=== PATIENT | female | born 1945 | race Caucasian/White ===

== ENCOUNTER 2022-10-08 21:43 | Emergency (ER) | payer MEDICARE, BC, SELFPAY ==
[2022-10-08 21:57] VITALS: BP 166/71; PULSE 65; RESP 18; TEMP 36.6; O2SAT 98
[2022-10-08] MEDS: TETRACAINE 0.5% OPHTH 2 DROP EYE-BOTH (23:22)
--- OUTSIDE RECORDS SUMMARY | 2022-10-08 23:29 | XMS_ITS | Continuity of Care Document ---
Author Name [facility] Care Team Providers Care School Age Teacher Name Role Phone [facility] Unavailable Unavailable Diagnostic Reports Report Value Date Source THYROID FINE NEEDLE ASPIRATION/BIOPSY US - THYROID FINE NEEDLE ASPIRATION/BIOPSY Patient Name: Kirt Escobedo Patient : 1945 DOS: Sep 09, 2019 Patient Ref. Physician: Kaitlin Randhawa SHUCKER Exam # [id number] - Sep 09 2019 - US - THYROID FINE NEEDLE ASPIRATION/BIOPSY (Right) Exam Performed at [facility] ADDENDUM: Pathology results have now returned for the above biopsy. DIAGNOSIS: Right thyroid, middle, 4.9 cm: Cytopathology: Atypia of undetermined significance. 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 on Sep 28, 2019 09/09/2019 Formerly [facility]
--- OUTSIDE RECORDS SUMMARY | 2022-10-08 23:29 | XMS_ITS | Continuity of Care Document ---
Author Name Unknown Organization [facility] Address [address] [place] [address] Phone Care Team Providers Care Operation Specialist Name Role Phone Sydnie Medina OD Unavailable Unavailable Allergies, Adverse Reactions, Alerts Substance Reaction Status Criticality latex Active No Information amlodipine Active No Information lisinopril Active No Information DIPHENHYDRAMINE HCL Active No Infor mation codeine Active No Information Sulfa (Sulfonamide Antibiotics) Active No Information Medications Medication Instructions Dosage Effective Dates (start - stop) Status Comments Alrex 0.2 % eye drops,suspension instill 1 drop by ophthalmic route TID OU for 2 weeks - Active levothyroxine 75 mcg capsule take 1 capsule by oral route every day 75 MCG - Active losartan 100 mg tablet take 1 tablet by oral route every day 100 MG - Active spironolactone 25 mg tablet take 1 tablet by oral route every day 25 MG - Active pantoprazole 40 mg tablet,delayed release take 1 tablet by oral route every day 40 MG - Active atorvastatin 40 mg tablet take 1 tablet by oral route every day 40 MG - Active metoprolol succinate ER 50 mg tablet,extended release 24 hr take 1 tablet by oral route every day 50 MG - Active Eliquis 5 mg tablet take 2 tablet by oral route 2 times every day 10 MG - Active carvedilol 6.25 mg tablet take 1 tablet by oral route 2 times every day with food 6.25 MG - Active PreserVision AREDS-2 250 mg-90 mg-40 mg-1 mg capsule - Active Alrex 0.2 % eye drops,suspension instill 1 drop by ophthalmic route TID OU for 2 weeks - No Longer Active Eysuvis 0.25 % eye drops,suspension instill 1 - 2 drop by ophthalmic route 3 times every day into both eyes for 1-2 weeks - No Longer Active Procedures Procedure Date Scan Computerized; Retina Epilation Of Lashes New Patient E/M Moderate MDM Advance Directives Directive Yes / No Effective Date File Name No Information Encounters Encounter Description Practice Location Reason(s) For Visit Diagnoses Date Provider Providers Copied on Encounter Formerly Named [facility], [address] , [place], [place], [id number], [place] tel:[phone]eline Berg No Information 3 Carol Otoole. [address] [place], [address], [place]. tel:[phone] New Patient E/M Moderate MDM Formerly Named [facility], [address] , [place], [place], [id number], [place] tel:[phone] Jacqueline Berg irritation (chief complaint) Trichiasis without entropion right upper eyelidKeratoconj unct sicca, not specified as Sjogren's, bilateralOther chronic allergic conjunctivitisOt her secondary cataract, bilateralBilater al nonexudative age-related macular degeneration, intermediate dry stagePuckering of macula, left eye 3 Carol Otoole. [address] [place], [address], [place]. [phone] Referring Provider: Sydnie Medina, [address] [place], [address]. tel:[phone] Family History Family Member Type Diagnosis Age At Onset No Information Payers Payer name Insurance type Covered democrat ID Authoriza tion(s) [facility] [id number] Social History Type Description Quantity Date Captured Comments Sex Female Smoking Status No Information Chief Complaint And Reason For Visit No Information Reason For Referral Reason For Referral No Information Plan Of Treatment Date Type Action Status No Information History Of Present Illness Encounter Date Complaint History Of Prese nt Illness irritation The 76 year old female presents for evaluation of irritation in the right eye > left. Patient describes having FBS, itching and swelling OD>OS. Started 7 days ago, however is worsening. Patient has been using Alaway drops and Systane Ultra, however is no longer helping. Patient also describes having a film over vision OD, has been off/on the last couple days.Patient reports hx of epiretinal membrane OS and dry AMD OU. 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 She is declining dilation today because she has yearly checks in the fall. Functional Status Date Functional Assessmen t No Information Medications Administered Medication Instructions Dosage Effective Dates (start - stop) Status Comments Alrex 0.2 % eye drops,suspension instill 1 drop by ophthalmic route TID OU for 2 weeks - No Longer Active Eysuvis 0.25 % eye drops,suspension instill 1 - 2 drop by ophthalmic route 3 times every day into both eyes for 1-2 weeks - No Longer Active Instructions Date Instruction Additional Infor markion Impression/Plan - Di scussed findings and educated patient on condition. Epilated 2 RUL lashes, patient tolerated procedure well. Contact clinic if symptoms return. 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 OCT ordered today: loss of foveal contour, no cystic spaces. Surgical treatment not indicated at this time. Cont care with outside ECP. Contact clinic sooner if any sudden worsening of vision. Related to Puckering of macula, left eye Impression/Plan - Di scussed findings and educated patient on condition. Inadequate relief with OTC artificial tears and Alaway, Pataday. Rx Alrex TID OU x 1-2 weeks. Contact clinic if symptoms persist/worsen. Related to Keratoconjunct sicca, not specified as Sjogren's, bilateral Impression/Plan - Se e #1. No current relief with Alaway or Pataday. Rx Alrex TID OU x 1-2 weeks. Also rec'd trying OTC Lastacaft. Related to Other chronic allergic conjunctivitis Impression/Plan - Di scussed findings. Patient states her regular ECP has mentioned possibly doing YAG next year. Keep appt w/ ECP in [place]. Related to Other secondary cataract, bilateral Impression/Plan - Di scussed findings. Patient refused DFE today as she has doctor back home in [place]. OCT ordered: no SRF, dry AMD OU. Continue to monitor with regular ECP. Monitor vision at home with Amsler grid. Patient directed to RTC sooner if any sudden changes to vision. Rx AREDS 2 BID, UV protection and healthy diet rich in antioxidants. Related to Bilateral nonexudative age-related macular degeneration, intermediate dry stage Follow up - PRN. Assessments Type Assessment Date No Information Patient Care Teams Name Effective Dates (start - stop) Status Members No Information
--- NOTE | 2022-10-09 03:24 | ED.EYEPROB ---
HPI - Eye Problem General Chief complaint: Eye Problems Stated complaint: Eye issue Time Seen by Provider: 10/08/22 22:36 History of Present Illness HPI Narrative: 76-year-old woman presenting to the emergency department with extremely itchy in somewhat burning eyes bilaterally and she just wants to the scratch out of their sockets. She does endorse a history of environmental allergies. She does use nasal steroid spray. Has been through a variety of what sounds like antihistamine eyedrops but became ineffective over time. Incidentally is due for YAG procedure in the morning. Currently using Lastacaft eyedrops. Does have a history of a contact dermatitis/conjunctivitis from makeup but no longer wears makeup. This prior episode of conjunctivitis she describes with copious purulent type drainage. Tonight she was treating with successive drops of Systane. Other than as mentioned above no exposures noted. No blisters. Denies for likelihood of foreign body in her. Related Data Previous Rx's Medication Instructions Recorded olopatadine 0.2 % eye drops 1 drp ophthalmic (eye) DAILY #2.5 10/08/22 mL Review of Systems Status of ROS: Reports: 6 or more systems reviewed and unremarkable except as noted in History and below PFSH PFS Social History Smoking Status: Never smoker Do you use any of these nicotine containing products: None Second hand tobacco smoke exposure: No How often do you have a drink containing alcohol: never AUDIT-C Alcohol total score: 0 Non-prescribed substance use: denies use service: No Exam Narrative: Exam Narrative: Pleasant. Of good energy. Appears little uncomfortable. Sounds subtly congested in the nasopharynx and I would say is consistent with a conjunctivitis I see here. Right a little bit more so than the left eye. Extraocular movements are full appear to be nonpainful. Pupils are brisk and equal. There is clear lacrimation. No surrounding redness tension or heat though infraorbital puffiness to the skin. Reflections consistent with lens reimplantation especially in her right eye. Seems dulled in the left. Const: Vital Signs, click to edit/add: Vital Signs - 24 hr 10/08/22 21:57 Temperature 97.9 F Pulse Rate [Right Pulse Oximeter] 65 Respiratory Rate 18 Blood Pressure [Ri ght Upper Arm] 166/71 H Pulse Oximetry 98 Oxygen Delivery Me thod Room Air Documenting provider has reviewed patient's vital signs: yes Course Vital Signs Vital signs: Initial Vital Signs Temperature 97.9 F 10/08/22 21:57 Temperature Source Temporal Artery Scan 10/08/22 21:57 Pulse Rate 65 10/08/22 21:57 Pulse Rhythm Regular 10/08/22 21:57 Respiratory Rate 18 10/08/22 21:57 Blood Pressure 166/71 H 10/08/22 21:57 Blood Pressure Mean 102 10/08/22 21:57 Blood Pressure Position Sitting 10/08/22 21:57 Pulse Oximetry 98 10/08/22 21:57 Oxygen Delivery Method Room Air 10/08/22 21:57 Vital Signs Temperature 97.9 F 10/08/22 21:57 Pulse Rate 65 10/08/22 21:57 Respiratory Rate 18 10/08/22 21:57 Blood Pressure 166/71 H 10/08/22 21:57 Pulse Oximetry 98 10/08/22 21:57 Oxygen Delivery Method Room Air 10/08/22 21:57 Temperature 97.9 F 10/08/22 21:57 Pulse Rate 65 10/08/22 21:57 Respiratory Rate 18 10/08/22 21:57 Blood Pressure 166/71 H 10/08/22 21:57 Pulse Oximetry 98 10/08/22 21:57 Oxygen Delivery Method Room Air 10/08/22 21:57 MDM - Eye Problem MDM Narrative Medical decision making narrative: I felt would benefit from some temporary relief at least. Ordered some tetracaine drops I placed them. She did have good relief of her discomfort. I do not see signs of bacterial conjunctivitis or any periorbital cellulitis. She does have close follow-up in the morning with ophthalmology and until then benefit mostly I think from symptom relief. Options seem a little limited. I would not want to put her on steroid drops at this point in anticipation of this procedure if she can still go through with that. Think oral steroids would be less effective and overkill. I think soothing measures like cold cloths and eye ointment and possibly changing up antihistamine eyedrops; will send in prescription for olopatadine noting that that is also available [id number] I believe now. She could certainly put in another drop of her current eye drops tonight. See patient discharge plan. Discharge Plan Discharge Clinical Impression: Conjunctivitis Patient Disposition: Home, Self-Care Condition: Improved Additional Instructions: Might try some cold moist packs like ice cubes inside wash cloths. For soothing otherwise some generic eye ointment. This can be picked up without prescription. Use as needed. You might try dosing your Lastacaft again this evening? Or changing to Patanol (olopatadine) which last I heard can now be purchased [id number] as well. I would follow-up just in case for your YAG tomorrow and discuss further at that time. Concerning signs/symptoms would be increased redness tension heat around the eye or pain with eye movement or a large amount of purulent eye drainage. Prescriptions: New olopatadine 0.2 % drops 1 drp ophthalmic (eye) DAILY Qty: 2.5 1RF Follow Up/Referrals: Provider,Not a Local [Primary Care Provider] - Stand Alone Forms: [employer] Info Instructions
== END 2022-10-08 23:40 | disposition home or self-care (01) ==
PROVIDERS: Emergency Provider Family Medicine
DX: H10.89 Other conjunctivitis (principal)
CPT/HCPCS: 99283; 99284

== ENCOUNTER 2022-10-09 12:26 | Outpatient (CLI) | payer MEDICARE, BC, SELFPAY ==
--- OUTSIDE RECORDS SUMMARY | 2022-10-09 12:30 | XMS_ITS | Continuity of Care Document ---
Author Name [facility]rain[facility] Care Team Providers Care Manager Special Events Name Role Phone [facility] Unavailable Unavailable Diagnostic Reports Report Value Date Source THYROID FINE NEEDLE ASPIRATION/BIOPSY US - THYROID FINE NEEDLE ASPIRATION/BIOPSY Patient Name: Kirt Escobedo Patient : 1945 DOS: Sep 09, 2019 Patient Ref. Physician: Kaitlin Randhawa C[employer] Exam # [id number] - Sep 09 2019 - US - THYROID FINE NEEDLE ASPIRATION/BIOPSY (Right) Exam Performed at [facility] ADDENDUM: Pathology results have now returned for the above biopsy. DIAGNOSIS: Right thyroid, middle, 4.9 cm: Cytopathology: Atypia of undetermined significance. 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 on Sep 28, 2019 09/09/2019 [facility]
[2022-10-09 12:47] VITALS: BP 127/71; PULSE 58; RESP 16; TEMP 36.6; O2SAT 97
[2022-10-09] MEDS: BRIMONIDINE TARTRATE 0.2% OPHTH 1 DROP EYE-BOTH ×2 (12:50→13:41)
[2022-10-09] MEDS: TETRACAINE 0.5% OPHTH 1 DROP EYE-BOTH ×3 (12:50→13:28)
--- NOTE | 2022-10-09 13:48 | P.OPTPRC_ITS ---
Procedure Note Date of procedure: 10/09/22 Will [facility] bill your pro fee for this procedure?: Yes Procedure Description: SURGEON: Zahraa Mckee MD PREOPERATIVE DIAGNOSIS: Posterior capsular opacity, right and left eye POSTOPERATIVE DIAGNOSIS: Posterior capsular opacity, right and left eye PROCEDURE: YAG laser capsulotomy, both eyes ANESTHESIA: Topical. ESTIMATED BLOOD LOSS: None PATHOLOGY SPECIMEN: None COMPLICATIONS: None INDICATIONS: See consult note for details. The risks, benefits and alternatives of the procedure were explained to the patient, who elected to proceed and signed informed consent to do so. PROCEDURE: The patient was brought to the pre-holding area where the right and left eyes were identified as the operative eyes. I placed my initials above the eyes. The following was given in both eyes: The patient received 2 sets of 1 drop of 0.5% tetracaine and 1 drop of 1% tropicamide. They also received 1 drop of 0.2% brimonidine. They received 1 drop of 0.5% tetracaine immediately prior to bringing them back for the procedure. The patient was then brought to the procedure room where the right and left eyes were again identified as the operative eyes. A YAG Seun capsulotomy lens was placed on the right eye. The laser was administered using a total number of 14 shots with an energy of 2.4 mJ per shot for a total energy of 34 mJ. The patient tolerated the procedure well. A YAG Seun capsulotomy lens was placed on the left eye. The laser was administered using a total number of 22 shots with an energy of 2.4 mJ per shot for a total energy of 53 mJ. The patient tolerated the procedure well. DISPOSITION: The patient was taken back to the pre-holding area and given 1 drop of 0.2% brimonidine in both eyes. They were discharged to home in stable condition. The patient was instructed to call me or go to the emergency department with any sudden change, including dramatic loss of vision, severe pain in the eye or eyebrow region, nausea, or vomiting. The patient was instructed to use the 0.2% brimonidine 1 drop 2 times a day in both eyes for 1 week. The patient will follow up in the clinic in 1-2 weeks.
== END 2022-10-09 13:42 | disposition home or self-care (01) ==
LOC: EYE PRC 12:28
PROVIDERS: PCP Family Medicine; Visit Provider Ophthalmology
DX: H26.9 Unspecified cataract (principal)
CPT/HCPCS: 66821; A9270